=== PATIENT | female | born 1985 | race African-American/Black ===

== ENCOUNTER 2025-02-18 17:14 | Emergency (ER) | payer SELFPAY ==
[~2025-02-18] VITALS: Ht 172.7 cm; Wt 70.0 kg
[2025-02-18 17:17] VITALS: BP 119/66; PULSE 121; RESP 24; TEMP 97.5; O2SAT 98
== END 2025-02-18 18:10 | disposition left against medical advice (07) ==
LOC: ER 17:14
DX: R21 Rash and other nonspecific skin eruption (principal); Z53.21 Procedure and treatment not carried out due to patient leaving prior to being seen by health care provider